=== PATIENT | male | born 1980 | race Caucasian/White ===

== ENCOUNTER 2017-05-08 16:14 | Emergency (ER) | payer MEDICAID, OTHER ==
[2017-05-08 16:25] VITALS: BP 143/100
--- NOTE | 2017-05-08 17:26 | ER Document Report ---
ED Medical Screen (RME) - General Chief Complaint: Abdominal Pain Stated Complaint: ABDOMINAL PAIN Time Seen by Provider: 05/08/17 17:23 Notes: LLQ quadrant abdominal pain x 3 days. + nausea, + vomiting x 1 today, + diarrhea. Denies blood in stool. Not on meds for crohns, new dx about 2 months ago. No fever. I have greeted and performed a rapid initial assessment of this patient. A comprehensive ED assessment and evaluation of the patient, analysis of test results and completion of the medical decision making process will be conducted by additional ED providers. TRAVEL OUTSIDE OF THE [place] IN LAST 30 DAYS: No - Related Data Allergies/Adverse Reactions: No Known Allergies Allergy (Verified 05/08/17 16:17) Past Medical History Psychiatric Medical History: Reports: Hx Bipolar Disorder Past Surgical History: Reports: Hx Cholecystectomy - Immunizations Hx Diphtheria, Pertussis, Tetanus Vaccination: Yes - 1.5 yrs ago Physical Exam - Vital signs Vitals: Temp Pulse Resp BP Pulse Ox 98.1 F 99 18 143/100 H 99 05/08/17 16:24 05/08/17 16:24 05/08/17 16:24 05/08/17 16:24 05/08/17 16:24 Course - Vital Signs Vital signs: Temp Pulse Resp BP Pulse Ox 98.1 F 99 18 143/100 H 99 05/08/17 16:24 05/08/17 16:24 05/08/17 16:24 05/08/17 16:24 05/08/17 16:24 - Laboratory Result Diagrams: 05/08/17 17:51 05/08/17 17:51 Laboratory results interpreted by me: 05/08/17 05/08/17 17:51 17:51 WBC 12.4 H Glucose 134 H Calcium 10.4 H ALT 76 H
[2017-05-08] MEDS ORDERED: HYDROCODONE/ACETAMINOPHEN 10-325 MG TABLET PO ONE (17:27)
[2017-05-08 17:59] LABS: ABSOLUTE BASOPHILS # (AUTO) 0.2 10^3/uL (0.0-0.2); ABSOLUTE EOSINOPHILS # (AUTO) 0.1 10^3/uL (0.0-0.6); ABSOLUTE LYMPHOCYTES (AUTO) 3.6 10^3/uL (0.5-4.7); ABSOLUTE MONOCYTES (AUTO) 0.5 10^3/uL (0.1-1.4); ABSOLUTE NEUT (AUTO) 8.1 10^3/uL (1.7-8.2); BASOPHILS % (AUTO) 1.2 % (0-2); EOSINOPHILS % (AUTO) 0.5 % (0-6); HEMATOCRIT 48.2 % (37.9-51.0); HEMOGLOBIN 16.5 g/dL (13.5-17.0); LYMPHOCYTES % (AUTO) 28.6 % (13-45); MEAN CORPUSCULAR HEMOGLOBIN 31.8 pg (27.0-33.4); MEAN CORPUSCULAR HGB CONC 34.2 g/dL (32.0-36.0); MEAN CORPUSCULAR VOLUME 93 fl (80-97); PLATELET COUNT 317 10^3/uL (150-450); RED BLOOD COUNT 5.18 10^6/uL (4.35-5.55); RED CELL DISTRIBUTION WIDTH 13.1 % (11.5-14.0); SEGMENTED NEUTROPHILS % (AUTO) 65.7 % (42-78); TOTAL CELLS COUNTED % (AUTO) 100 %; WHITE BLOOD COUNT 12.4 10^3/uL (4.0-10.5)
[2017-05-08 18:22] LABS: ALANINE AMINOTRANSFERASE 76 U/L (21-72); ALBUMIN 4.8 g/dL (3.5-5.0); ALKALINE PHOSPHATASE 85 U/L (38-126); ANION GAP 16 (5-19); ASPARTATE AMINO TRANSFERASE 37 U/L (17-59); BILIRUBIN,DIRECT 0.4 mg/dL (0.0-0.4); BILIRUBIN,TOTAL 0.5 mg/dL (0.2-1.3); BLOOD UREA NITROGEN 7 mg/dL (7-20); CALCIUM 10.4 mg/dL (8.4-10.2); CARBON DIOXIDE 26 mmol/L (22-30); CHLORIDE 102 mmol/L (98-107); GLUCOSE 134 mg/dL (75-110); LIPASE 98.8 U/L (23-300); POTASSIUM 3.7 mmol/L (3.6-5.0); SODIUM 144.2 mmol/L (137-145); TOTAL PROTEIN 7.5 g/dL (6.3-8.2)
[2017-05-08 19:29] LABS: APPEARANCE,URINE CLEAR; BILIRUBIN,URINE NEGATIVE (NEGATIVE); COLOR,URINE STRAW; GLUCOSE, URINE NEGATIVE (NEGATIVE); KETONES,URINE NEGATIVE (NEGATIVE); LEUKOCYTE ESTERASE,URINE NEGATIVE (NEGATIVE); NITRITE,URINE NEGATIVE (NEGATIVE); PROTEIN,URINE NEGATIVE (NEGATIVE); URINE SPECIFIC GRAVITY 1.001; UROBILINOGEN,URINE NEGATIVE mg/dL (<2.0)
[2017-05-08] MEDS ORDERED: MORPHINE SULFATE 10 MG/ML INJ IV ONE (22:46)
[2017-05-08] MEDS ORDERED: NORMAL SALINE 1000 ML 1,000 ML IV ONE (22:47)
--- NOTE | 2017-05-08 23:16 | ER Document Report ---
ED General - General Chief Complaint: Abdominal Pain Stated Complaint: ABDOMINAL PAIN Time Seen by Provider: 05/08/17 17:23 Notes: Patient is a 29-year-old male who presents with complaint of left lower quadrant abdominal pain. Is been ongoing for 3 days. He does have a history of Crohn's disease. He says he was diagnosed by his primary care doctor. Colonoscopies and endoscopies. He also had what sounds to be a CT scan with oral contrast. He says he was told that he has "borderline Crohn's. He says he has had some diarrhea and some nausea. He denies any fevers. He denies any blood in his stool. He denies history of diverticulitis. He has no other complaints at this time. Patient does have history of cholecystectomy. TRAVEL OUTSIDE OF THE [place] IN LAST 30 DAYS: No - Related Data Allergies/Adverse Reactions: No Known Allergies Allergy (Verified 05/08/17 16:17) Past Medical History - Social History Smoking Status: Current Every Day Smoker Chew tobacco use (# tins/day): No Frequency of alcohol use: None Drug Abuse: Marijuana Family History: Reviewed & Not Pertinent Patient has suicidal ideation: No Patient has homicidal ideation: No Renal/ Medical History: Denies: Hx Peritoneal Dialysis Psychiatric Medical History: Reports: Hx Bipolar Disorder Past Surgical History: Reports: Hx Cholecystectomy - Immunizations Hx Diphtheria, Pertussis, Tetanus Vaccination: Yes - 1.5 yrs ago Review of Systems - Review of Systems Notes: My Normal Review Basic REVIEW OF SYSTEMS: CONSTITUTIONAL : Denies fever, chills, or sweats. Denies recent illness. EENT: Denies eye, ear, throat, or mouth pain or symptoms. Denies nasal or sinus congestion. RESPIRATORY: Denies cough, cold, or chest congestion. Denies shortness of breath, difficulty breathing, or wheezing. GASTROINTESTINAL: Left lower quadrant abdominal pain. Some nausea. Has diarrhea. No blood in stool. GENITOURINARY: Denies difficulty urinating, painful urination, burning, frequency, or blood in urine. MUSCULOSKELETAL: Denies neck or back pain or joint pain or swelling. SKIN: Denies rash or skin lesions. NEUROLOGICAL: Denies altered mental status or loss of consciousness. Denies headache. Denies weakness or paralysis or loss of use of either side. Denies problems with gait or speech. Denies sensory or motor loss. ALL OTHER SYSTEMS REVIEWED AND NEGATIVE. Physical Exam - Vital signs Vitals: Temp Pulse Resp BP Pulse Ox 98.1 F 99 18 143/100 H 99 05/08/17 16:24 05/08/17 16:24 05/08/17 16:24 05/08/17 16:24 05/08/17 16:24 - Notes Notes: General Appearance: Well nourished, alert, cooperative, no acute distress, mild to moderate obvious discomfort. Vitals: reviewed, See vital signs table. Head: no swelling or tenderness to the head Eyes: PERRL, EOMI, Conjuctiva clear Mouth: No decreasd moisture Throat: No tonsillar inflammation, No airway obstruction, No lymphadenopathLungs: No wheezing, No rales, No rhonci, No accessory muscle use, good air exchange bilaterally. Heart: Normal rate, Regular rythm, No murmur, no rub Abdomen: Normal BS, soft, No rigidity, moderate left lower quadrant abdominal tenderness the patient. Mild right lower quadrant abdominal tenderness palpation., No guarding, no rebound, no abdominal masses, no organomegaly Genital exam: Normal external genitalia without redness swelling or pain to palpation. No inguinal hernia on palpation. Extremities: strength 5/5 in all extremities, good pulses in all extremities, no swelling or tenderness in the extremities, no edema. Skin: warm, dry, appropriate color, no rash Neuro: speech clear, oriented x 3, normal affect, responds appropriately to questions. Course - Re-evaluation Re-evalutation: 05/08/17 23:28 Result the patient informed him that we be given a dose of pain medicine and some fluids as well as obtain a CT scan help differentiate whether not this is more of an infectious type etiology versus inflammatory bowel disease. I suspect it is probably Crohn's. I told him this is important me that he does not have a clear-cut diagnosis of Crohn's and we need to know whether or not this is infectious or not so we know whether or not to treat with antibiotics for steroids. Patient and his seemed very happy with this plan. I left the room and did order a CT scan as well as the IV fluids as well as pain medicine. The nurse later came and told me that the patient has left the room. His is also not there. We waited for approximately 20 to 30 minutes. The nurse even try to call the patient's cell phone number. He did not picker. Patient never returned to the room. It appears that the patient has eloped. Dictation of this chart was performed using voice recognition software; therefore, there may be some unintended grammatical errors. 05/09/17 05:51 - Vital Signs Vital signs: Temp Pulse Resp BP Pulse Ox 98.1 F 99 18 143/100 H 99 05/08/17 16:24 05/08/17 16:24 05/08/17 16:24 05/08/17 16:24 05/08/17 16:24 - Laboratory Result Diagrams: 05/08/17 17:51 05/08/17 17:51 Laboratory results interpreted by me: 05/08/17 05/08/17 17:51 17:51 WBC 12.4 H Glucose 134 H Calcium 10.4 H ALT 76 H Discharge - Discharge Clinical Impression: Abdominal pain Qualifiers: Abdominal location: left lower quadrant Qualified Code(s): R10.32 - Left lower quadrant pain Disposition: ELOPED
== END 2017-05-08 23:35 | disposition left against medical advice (07) ==
LOC: ER 16:14
DX: R10.32 Left lower quadrant pain (principal); K50.90 Crohn's disease, unspecified, without complications; R19.7 Diarrhea, unspecified; R11.0 Nausea; F17.200 Nicotine dependence, unspecified, uncomplicated
CPT/HCPCS: 36415; 80053; 81001; 83690; 85025; 99281